=== PATIENT | male | born 1965 | race American Indian/Alaskan Native ===

== ENCOUNTER 2020-10-12 11:52 | Emergency (ER) | payer BC, MEDICAID ==
[~2020-10-12] VITALS: Ht 188 cm; Wt 99.8 kg
[2020-10-12 12:30] VITALS: BP_SYST 146
--- NOTE | 2020-10-12 12:30 | NUR ---
Patient to ER bed 1 to gown for evaluation. Side rails up. Report given to ARUNA MEJIA.
[2020-10-12] MEDS ORDERED: KETOROLAC TROMETHAMINE 60 MG/2 ML VIAL IM ONE (12:45)
--- NOTE | 2020-10-12 12:45 | NUR ---
pt arrives from work after sustaining a fall. Pt was working on a roof when he slipped and landed on the left side of his body. Currently c/o left sided rib pain 9, sharp
--- NOTE | 2020-10-12 13:00 | NUR ---
ER at bedside examining patient.
--- NOTE | 2020-10-12 13:20 | NUR ---
# 18 gauge angiocath placed to lac. Use of asceptic technique. Opsite placed over site. Blood return noted. Blood for lab drawn from site. Flushed with 10 cc of normal saline. No evidence of infiltration noted. Patient tolerated well.
--- NOTE | 2020-10-12 15:12 | NUR ---
REPORT RECEIVED FROM JACKIE RICHARDSON
--- NOTE | 2020-10-12 15:48 | NUR ---
Patient resting quietly on cell phone. No acute distress noted.
[2020-10-12 16:29] LABS: BASOPHILS % (AUTO) 0.4 % (0.0-2.0); EOSINOPHILS # (AUTO) 0.1 K/uL (0.0-0.4); EOSINOPHILS % (AUTO) 0.8 % (0.0-4.0); HEMATOCRIT 40.5 % (36-54); HEMOGLOBIN 13.5 g/dL (14.0-18.0); LYMPHOCYTES # (AUTO) 1.7 K/uL (1.0-5.5); LYMPHOCYTES % (AUTO) 14.6 % (20.5-51.5); MEAN CORPUSCULAR HEMOGLOBIN 29 pg (27-31); MEAN CORPUSCULAR HGB CONC 33 % (32-36); MEAN CORPUSCULAR VOLUME 87 fL (79.0-98.0); MONOCYTES # (AUTO) 0.5 K/uL (0.0-1.0); MONOCYTES % (AUTO) 4.7 % (1.7-9.3); NEUTROPHILS # (AUTO) 9.2 K/uL (1.8-7.7); NEUTROPHILS % (AUTO) 79.5 % (40.0-70.0); PLATELET COUNT (AUTO) 208 K/uL (130-430); RED BLOOD CELL COUNT(AUTO) 4.67 MIL/uL (4.2-6.2); RED CELL DISTRIBUTION WIDTH 13.4 % (9.0-15.0); WHITE BLOOD COUNT (AUTO) 11.5 K/uL (4.8-10.8)
[2020-10-12 16:31] LABS: CREATININE 1.04 mg/dL (0.55-1.30); POTASSIUM 4.1 mmol/L (3.5-5.1)
--- NOTE | 2020-10-12 16:32 | NUR ---
patient c/o of 6/10 left rib pain. Md notified. awaiting orders
[2020-10-12 16:36] LABS: ALBUMIN 4.1 g/dL (3.4-4.8); TOTAL BILIRUBIN 0.4 mg/dL (0.0-1.0)
[2020-10-12] MEDS ORDERED: MORPHINE 4 MG INJ. 4 MG/ML VIAL IVP ONE (17:00)
--- NOTE | 2020-10-12 17:01 | NUR ---
medicated per md order
[2020-10-12] MEDS ORDERED: HYDR-3917 PO (17:31)
[2020-10-12] MEDS ORDERED: IBUP-1969 PO (17:33)
[2020-10-12 17:43] VITALS: BP_SYST 130
--- NOTE | 2020-10-12 17:43 | NUR ---
Patient given written and verbal discharge instructions and verbalizes understanding. ER MD discussed with patient the results and treatment provided. Patient in stable condition. ID arm band removed. IV catheter removed intact and dressing applied, no active bleeding. Rx of norco and ibuprofen given. Patient educated on pain management and to follow up with PMD. Pain Scale 0/10 Opportunity for questions provided and answered. Medication side effect fact sheet provided.
== END 2020-10-12 17:43 | disposition home or self-care (01) ==
LOC: SED 11:52
DX: S29.9XXA Unspecified injury of thorax, initial encounter (principal); S39.91XA Unspecified injury of abdomen, initial encounter; Z88.5 Allergy status to narcotic agent; Z88.6 Allergy status to analgesic agent; Z79.899 Other long term (current) drug therapy; S21.102A Unspecified open wound of left front wall of thorax without penetration into thoracic cavity, initial encounter; W17.89XA Other fall from one level to another, initial encounter; Y93.89 Activity, other specified; Y92.89 Other specified places as the place of occurrence of the external cause; Y99.8 Other external cause status
CPT/HCPCS: 36415; 71260; 74177; 76376; 80053; 85025; 96372; 96374; 99285; J1885; J2270; Q9967